=== PATIENT | female | born 1940 | race Caucasian/White ===

== ENCOUNTER 2018-09-08 15:55 | Inpatient (IN) | payer MEDICARE ==
[2018-09-08] MEDS ORDERED: hydrALAZINE IV* 20 MG/ML VIAL IV SLOW PU PRN (18:49)
[2018-09-08] MEDS ORDERED: Ondansetron INJ* 2 MG/ML VIAL IV SCH (19:30)
[2018-09-08] MEDS ORDERED: Metoprolol Tartrate IV* 1 MG/ML 5 ML VIAL IV PRN (19:39)
[2018-09-08] MEDS: Morphine VIAL* 4 MG/ML VIAL (1 ml vial) IV PRN (20:14)
[2018-09-08] MEDS: Ondansetron INJ* 2 MG/ML VIAL IV PRN (20:14)
[2018-09-08] MEDS: NS 0.9% 1000 ML* 1,000 ML IV SCH (20:15)
[2018-09-08] MEDS: LORazepam INJ* 2 MG/ML 1 ML VIAL IV PUSH PRN (20:15)
--- NOTE | 2018-09-08 20:26 | HP ---
CC: Dr. Adrian Sanchez * ADMISSION HISTORY AND PHYSICAL: DATE OF ADMISSION: 09/08/18 PRIMARY CARE PROVIDER: There is none listed on the record. ATTENDING FOR THIS ADMISSION: Dr. Enid Allen.* (DICTATED BY TAWANNA KNIGHT NP) CONSULTING PHYSICIAN: Dr. Adrian Sanchez of Surgery. HISTORY OF PRESENT ILLNESS: This is a very pleasant 77-year-old female patient who was transferred from [facility] Emergency Department. Per the notes , the patient was brought to the ED by ambulance after persistent nausea, vomiting, and diarrhea for 12 hours with severe abdominal pain. Patient had imaging in the ER at [facility] in the form of a CAT scan. CAT scan revealed dilated small bowel loops with mural thickening with air fluid levels 3.8 cm diameter with a transition point subadjacent to the surgical mesh centrally in the abdomen from a prior hernia repair. Also some colonic diverticulosis with no evidence of diverticulitis. Appendix was not visualized and some other ancillary findings. At that point, it was determined the patient had a small bowel obstruction. She received 2 L of fluid, IV morphine, IV Zofran, and IV Reglan, and was transferred to [facility] for surgical evaluation. Upon arrival, the patient appears to be alert and in no acute distress. She is currently comfortable, not complaining of abdominal pain. She is having bouts of nausea. Denies any fever or chills. No shortness of breath. No chest pain , no urinary complaints. Diarrhea is currently subsided and no further constitutional complaints. PAST MEDICAL HISTORY: Significant for atrial fibrillation, paroxysmal in the past; ovarian cancer; and hypertension. PAST SURGICAL HISTORY: Appendectomy, cholecystectomy, and hysterectomy. HOME MEDICATIONS: Include: 1. Crestor 5 mg p.o. in the evening. 2. Metoprolol succinate XL 12.5 mg p.o. b.i.d. ALLERGIES: TYLENOL, which causes vomiting; CEPHALOSPORINS, which causes vomiting; LATEX, which causes swelling; and PENICILLINS, which also causes vomiting. FAMILY HISTORY: Noncontributory. SOCIAL HISTORY: Smoking History: The patient does have history of smoking. She has quit more than 1 year ago. Drinks alcohol only socially. Lives at home with her family. She is retired. Her next of kin and healthcare proxy is her , Ulices Vu, can be reached at [phone]. PHYSICAL EXAMINATION GENERAL: Well-appearing older female, in no acute distress. VITAL SIGNS: Blood pressure 161/60, heart rate 92, respiratory rate 16, O2 saturation 95% on room air with temperature of 97.6. HEENT: Patient is atraumatic, normocephalic. PERRLA with nonicteric sclerae. NECK: Supple, nontender. No JVD noted. No carotid bruits auscultated. LUNGS: Clear bilaterally to auscultation with no wheezing, rhonchi, or rales. CARDIOVASCULAR: S1, S2 present. No murmurs, gallops, or rubs. ABDOMEN: Bowel sounds are hypoactive. She has some mild distention. Generalized tenderness localizing more to the left and lower quadrant. MUSCULOSKELETAL: There is no clubbing, no cyanosis, and no edema. She has full range of motion. NEUROLOGIC: Grossly intact. No focal deficits. SKIN: Warm, dry, and intact. PSYCHIATRIC: She is cooperative and appropriate. DIAGNOSTIC STUDIES/LAB DATA: Laboratories obtained at [facility]: WBC is mildly elevated at 12.2, RBC is 4.96, hemoglobin 15.7, hematocrit 46.2, platelets 372,000. Sodium 137, potassium 4.1, chloride 99, CO2 of 23, BUN 25, creatinine 1.1, GFR is 48. AST 37, ALT 45, alk phos 82. INR is 0.99. Urinalysis is bertha cloudy urine with no acute infective process noted. CT of the abdomen as noted above. IMPRESSION: This is a 77-year-old female patient with a history of abdominal surgery, hernia repair, and hysterectomy in the past, who presents with persistent nausea and vomiting for 12 hours, found to have small bowel obstruction. DIAGNOSES: 1. Small bowel obstruction: The patient will be kept n.p.o. We will continue her on IV fluids, morphine for pain control, and IV Zofran for her nausea. Per ER records, the patient refused to have an NG tube placed when she was at [facility]. If her vomiting persists, we will defer to Surgery's recommendations whether an NG tube should be placed. Dr. Sanchez is currently at the bedside evaluating the patient and we will defer to any further recommendations he makes regarding her care. 2. For her hypertension, she is on metoprolol XL, which is controlling her blood pressure but it was also for her remote history of paroxysmal atrial fibrillation. She is currently in regular sinus rhythm. Patient did have elevated pressure upon arrival. May in fact be due to her pain; however, we will also order lopressor 5mg IVP and hydralazine 5 mg IVP push q.6 hours as needed with parameters. 3. History of hyperlipidemia: She is currently on Crestor which will be held while NPO. 4. Diet: She should be n.p.o. 5. Fluids: She will have IV normal saline at 125 mL/hour. 6. Code status: The patient is a full code. 7. DVT prophylaxis: She will be placed on heparin 5000 units subcu q.8 hours. She can ambulate with assistance as tolerated. 8. History of anxiety. Patient will be placed on IV Ativan, very small dose of 0.5 mg q.6 hours as needed for anxiety and/or agitation. The rest of the patient's course will be determined by further diagnostics, laboratories, and any other input from other providers as warranted during this admission. This plan of care has been discussed with Dr. Davis, the attending on this case , and she is in agreement with the plan. We look forward to any further recommendations from Dr. Sanchez and the surgical team regarding her plan of care. TIME SPENT: Approximately 60 minutes interviewing the patient, reviewing the chart from her previous facility, and interfacing with primary nursing staff. TAWANNA KNIGHT NP [id number]/[facility] #: [id number] SISSY
[2018-09-08] MEDS ORDERED: Metoprolol Succinate XL TAB* 25 MG PO SCH (21:00)
[2018-09-08] MEDS: Heparin VIAL(*) 5000 UNITS/ML VIAL (FIVE THOUSAND) SUBCUT SCH (21:41)
--- NOTE | 2018-09-08 22:12 | CONS ---
CC: Darshana Pagan MD * SURGICAL CONSULTATION REPORT: DATE OF CONSULT: 09/08/18 REASON FOR CONSULT: Small bowel obstruction. HISTORY OF PRESENT ILLNESS: Is as follows: Mrs. Vu is a 77-year-old female who reports a 2-week history of irregular bowels as well as symptoms of upper respiratory infection, who began having left-sided then generalized abdominal pain about 5 p.m. on 09/07/18. Earlier in the day, she had eaten strawberries and raw shelled peanuts. Shortly after her pain worsened, she tried drinking some daria nu and promptly had emesis. She then proceeded to have multiple episodes of emesis including bilious emesis, totalling at least 10 episodes. She did not sleep well in the evening, and on the morning of 09/08, she felt she needed to go to the hospital emergency room and she presented to [facility]. She reports chills, but no fever. She had a bowel movement in the evening, but states that was diarrhea. She has not passed flatus for 1 to 2 days. She denies hematemesis or hematochezia. She reports intentional weight loss of about 5 pounds every 2 weeks. At [facility], she underwent evaluation with CT imaging. The patient was found to have dilated small bowel loops with air fluid levels, colonic diverticulosis, and the impression was small bowel obstruction on the basis of adhesions. She had been transferred to the [facility] for higher level of care and availability of surgical consultation. PAST MEDICAL HISTORY: Significant for high blood pressure, high cholesterol, ovarian cancer, and anxiety. PAST SURGICAL HISTORY: Significant for appendectomy as a teenager, open cholecystectomy in the , and GILLIAN/BSO in [facility] in 2006. She denies any history of hernia repair. HOME MEDICATIONS: 1. Alprazolam 0.25 mg p.r.n. anxiety. 2. Metoprolol 25 mg b.i.d. 3. Rosuvastatin 5 mg q.h.s. ALLERGIES: LATEX causes difficulty breathing, also ACETAMINOPHEN, CEPHALOSPORIN , PENICILLIN. FAMILY HISTORY: Mother had brain cancer, also high blood pressure, borderline diabetes. Father had atherosclerotic heart disease and brother has obesity and heart disease. SOCIAL HISTORY: She is . She lives with her , who she takes care of as he has Parkinson disease. She reports a distant history of tobacco use and she quit cigarette smoking 30 years ago. She reports rare alcohol use and denies drug use. REVIEW OF SYSTEMS: A 14-point review of systems was completed, significant for the above mentioned positives and negatives, otherwise were negative. PHYSICAL EXAM: She is a 77-year-old obese female, in no acute distress, 5 feet 2 inches, 184 pounds, BMI of 33.8. Temperature 97.6, blood pressure 161/60, pulse of 92, respirations 16, O2 sat 95% on room air. Head is normocephalic and atraumatic. Sclerae anicteric. Mucous membranes are moist. She has no otorrhea or rhinorrhea. Dentition is intact. Neck is symmetrical with no palpable lymphadenopathy and trachea is midline. Her lungs are clear to auscultation bilaterally without wheezes, rales, or rhonchi. Her heart is regular, S1, S2. Appreciate no murmurs. Her abdomen is obese. Bowel sounds are diminished. She has well-healed scars, an oblique paramedian scar towards the right side as well as lower midline scar. Abdomen is soft. There is tenderness in the mid abdomen to lower abdomen with mild tenderness to percussion. No guarding. Extremities are warm. No cyanosis, clubbing, or edema. Her skin is warm. She has numerous keratoses. DIAGNOSTIC STUDIES/LAB DATA: Laboratory data from [facility] was reviewed. Her CBC is notable for WBCs of 12.2, hemoglobin of 15.7, no shift, platelet count is 372. Comprehensive metabolic panel notable for normal electrolytes, elevated BUN at 25, creatinine mildly elevated at 1.1, glucose elevated at 146. Albumin, lipase, and amylase were normal. Coagulation studies were normal. Urinalysis showed specific gravity 1.18, 1+ protein, 1+ ketones, 1+ bilirubin, blood and nitrite negative. CT imaging was as reported. Images not available for review at this time. IMPRESSION: A 77-year-old female with a history of multiple abdominal surgeries , now presenting with small bowel obstruction, likely secondary to adhesions. PLAN/RECOMMENDATIONS: I discussed findings with the patient, her daughter, and her granddaughter, who accompanied her. I have recommended n.p.o. status, placement of NG tube for decompression. She will need intravenous hydration. [facility] will continue to follow. She will need serial abdominal x- rays and exams. Should she fail to improve or if she should worsen, then surgery may be required; however, there is no urgent or emergent need for any surgery at this time. [id number]/[facility] #: [id number] MTDD
[2018-09-09] MEDS: NS 0.9% 1000 ML* 1,000 ML IV SCH ×3 (04:21→21:32)
[2018-09-09] MEDS: Heparin VIAL(*) 5000 UNITS/ML VIAL (FIVE THOUSAND) SUBCUT SCH ×3 (05:18→21:33)
[2018-09-09 05:52] LABS: ABS Basophils 0 10^3/ul (0-0.2); ABS Eosinophils 0 10^3/ul (0-0.6); ABS Lymphocytes 1.3 10^3/ul (1.0-4.8); ABS Monocytes 0.6 10^3/ul (0-0.8); ABS Nucleated RBC 0 10^3/ul; Eosinophil % 0.4 %; Hematocrit 35 % (35-47); Hemoglobin 11.9 g/dl (12.0-16.0); Lymphocyte % 18.8 %; Mean Corpuscular HGB Conc 34 g/dl (31-36); Mean Corpuscular Hemoglobin 33 pg (27-31); Mean Corpuscular Volume 95 fL (80-97); Mean Platelet Volume 8.3 fL (7.4-10.4); Nucleated Red Blood Cells % 0; Platelet Count 242 10^3/ul (150-450); Red Blood Count 3.67 10^6/ul (4.00-5.40); Red Cell Distribution Width 13 % (10.5-15); White Blood Count 6.9 10^3/ul (3.5-10.8)
[2018-09-09 06:10] LABS: Albumin 3.4 g/dL (3.2-5.2); Albumin/Globulin Ratio 1.4 (1-3); BUN/Creatinine Ratio 37.5 (8-20); Calcium 7.3 mg/dL (8.6-10.3); Globulin 2.5 g/dL (2-4); Potassium 3.6 mmol/L (3.5-5.0); Total Bilirubin 0.6 mg/dL (0.2-1.0); Total Protein 5.9 g/dL (6.4-8.9)
[2018-09-09] MEDS: Morphine VIAL* 4 MG/ML VIAL (1 ml vial) IV PRN ×2 (09:55→19:52)
--- NOTE | 2018-09-09 11:23 | OP ---
Operative Report - Blank - Operative Report Date of Operation: 09/09/18 Note: Surgery Progress: S: Feels better. Much less pain. Passed some flatus. No N/V. Does not like NG. O: Vital Signs - 8 hr 09/09/18 09/09/18 09/09/18 03:24 07:44 08:00 Temperature 98.1 F 97.5 F Pulse Rate 84 81 Respiratory 20 16 16 Rate Blood Pressure 154/62 143/58 (mmHg) O2 Sat by Pulse 98 97 Oximetry 09/09/18 09:55 Temperature Pulse Rate Respiratory 16 Rate Blood Pressure (mmHg) O2 Sat by Pulse Oximetry Intake and Output Last 24 Hours 09/07/18 09/08/18 09/09/18 09/10/18 06:59 06:59 06:59 06:59 Intake Total 990 Balance 990 Weight 184 lb 9.6 oz Intake: IV Fluids 990 NS 990 Oral 0 Other: # Bowel Movements 0 # Voids 0 (No NG output recorded in I/O; there is currently ~ 350 ml of light drainage in trap) Gen: WN, obese female in NAD, lying in bed Heart: reg Lungs: clear; decreased at bases Abd: scars from previous surgery; nondistended per pt; +BS, though somewhat hypoactive; soft; mild tenderness R side to deep palp (per pt, much better); nontender to palp on L AXR: contrast in colon; no sig distended SB loops (reading pending by radiologist) A: SBO, resolving P: I believe it would be safe to d/c NG and allow her sips of clear liquids; maintain IVF through today, then liberalize po intake 09/10 and d/c home if continued improved clinical course. Will d/w Dr. Sanchez.
[2018-09-09] MEDS: Ondansetron INJ* 2 MG/ML VIAL IV PRN ×2 (16:02→19:53)
--- NOTE | 2018-09-09 16:07 | PN ---
Subjective Date of Service: 09/09/18 Interval History: Patient seen and examined. Family at bedside. NG tube removed appox 20 minutes ago. Patient feeling dizzy and tired. Sats have been low-normal. Denies chest pain, no SOB, no vomiting. Objective Active Medications: Heparin Sodium (Porcine) (Heparin Vial(*)) 5,000 units SUBCUT Q8HR [facility] Last Admin: 09/09/18 13:07 Dose: 5,000 units Sodium Chloride (Ns 0.9% 1000 Ml*) 1,000 mls @ 125 mls/hr IV PER RATE [facility] Last Admin: 09/09/18 13:06 Dose: 125 mls/hr Lorazepam (Ativan Inj*) 0.5 mg IV PUSH Q6H PRN PRN Reason: ANXIETY Last Admin: 09/08/18 20:15 Dose: 0.5 mg Metoprolol Tartrate (Lopressor Iv*) 5 mg IV Q6H PRN PRN Reason: tachycardia or hypertension Morphine Sulfate (Morphine Vial*) 4 mg IV Q4H PRN PRN Reason: PAIN - MILD Last Admin: 09/09/18 09:55 Dose: 4 mg Ondansetron HCl (Zofran Inj*) 4 mg IV Q4H PRN PRN Reason: NAUSEA/VOMITING Last Admin: 09/08/18 20:14 Dose: 4 mg Vital Signs - 8 hr 09/09/18 09/09/18 09/09/18 09:55 11:19 11:44 Temperature 98.2 F Pulse Rate 79 Respiratory 16 16 14 Rate Blood Pressure 142/60 (mmHg) O2 Sat by Pulse 97 Oximetry Oxygen Devices in Use Now: Nasal Cannula Appearance: alert, fatigued-appearing Eyes: No Scleral Icterus, PERRLA Ears/Nose/Mouth/Throat: NL Teeth, Lips, Gums, Mucous Membranes Moist Neck: NL Appearance and Movements; NL JVP, Trachea Midline Respiratory: Symmetrical Chest Expansion and Respiratory Effort, Clear to Auscultation Cardiovascular: NL Sounds; No Murmurs; No JVD, RRR, No Edema Abdominal: - - hypoactive BS, passing flatus, no distension, no pain Extremities: No Edema, No Clubbing, Cyanosis Skin: No Rash or Ulcers, No Nodules or Sclerosis Neurological: Alert and Oriented x 3 Nutrition: - - sips of water only Result Diagrams: 09/09/18 05:25 09/09/18 05:25 Assess/Plan/Problems-Billing Assessment: This is a 77 year old female with history of HTN, afib and multiple abdominal surgeries in the past that was transferred from [facility] for protracted nausea and vomiting, found to have partial SBO. - Patient Problems (1) Partial small bowel obstruction Code(s): K56.600 - PARTIAL INTESTINAL OBSTRUCTION, UNSPECIFIED TO CAUSE SNOMED Code(s): 613775568 Comment: - NG tube inserted last night with good effect - NG tube discontinued today as per surgery - Diet per surgery, advance to clears in AM - Continue IVF - Antiemetics PRN, pain control PRN (2) Hypertension Code(s): I10 - ESSENTIAL (PRIMARY) HYPERTENSION SNOMED Code(s): 93226748 Comment: - Lopressor 5mg IVP PRN HTN, BP stable (3) Paroxysmal A-fib Code(s): I48.0 - PAROXYSMAL ATRIAL FIBRILLATION SNOMED Code(s): 607209163 Comment: - On metoprolol - Currently on PRN lopressor IV given obstruction - Restart home dose tomorrow if tolerating PO - HR is currently regular (4) DVT prophylaxis Code(s): HWJ7442 - SNOMED Code(s): 233430417 Comment: - HSQ (5) Full code status Code(s): Z78.9 - OTHER SPECIFIED HEALTH STATUS SNOMED Code(s): 324666067 Status and Disposition: Inpatient. Anticipate DC to home when medically stable 1-2 days.
[2018-09-09] MEDS ORDERED: Atorvastatin* 10 MG TAB PO SCH (18:00)
[2018-09-09] MEDS ORDERED: hydrALAZINE IV* 20 MG/ML VIAL IV SLOW PU PRN (18:43)
[2018-09-09] MEDS: LORazepam INJ* 2 MG/ML 1 ML VIAL IV PUSH PRN (19:52)
[2018-09-10] MEDS: NS 0.9% 1000 ML* 1,000 ML IV SCH ×3 (05:36→22:52)
[2018-09-10] MEDS: Heparin VIAL(*) 5000 UNITS/ML VIAL (FIVE THOUSAND) SUBCUT SCH ×3 (05:37→21:08)
[2018-09-10] MEDS: LORazepam INJ* 2 MG/ML 1 ML VIAL IV PUSH PRN (06:22)
[2018-09-10] MEDS: Ondansetron INJ* 2 MG/ML VIAL IV PRN ×2 (06:22→09:57)
--- NOTE | 2018-09-10 11:47 | PN ---
Progress Note - Progress Note Date of Service: 09/10/18 Note: Surgery Progress: S: spoke earlier w/ NAMRATA Anderson who stated that patient was having more abd pain and nausea. At present she denies much pain. She feels hungry. Had 2 small BMs this a.m. and has been passing flatus. She is somewhat anxious re: her , who, with his Parkinson's, has been getting more confused, fell on his way bringing her in yesterday, and relies on her at home. Her daughter confirms. O: Vital Signs - 8 hr 09/10/18 09/10/18 09/10/18 06:14 06:22 08:05 Temperature 98.4 F Pulse Rate 83 78 Respiratory 14 16 16 Rate Blood Pressure 169/63 134/66 (mmHg) O2 Sat by Pulse 97 97 Oximetry Intake and Output Last 24 Hours 09/08/18 09/09/18 09/10/18 09/11/18 06:59 06:59 06:59 06:59 Intake Total 990 3980 Output Total 520 Balance 990 3460 Weight 184 lb 9.6 oz Intake: IV Fluids 990 3980 NS 990 3980 Oral 0 0 Output: NG Tube Drainage Amount 520 Other: # Bowel Movements 0 1 # Voids 0 2 Gen: appears comfortable, conversant, and in NAD Heart: reg Lungs: clear Abd: no sig distension or tympany; BS+; soft; mild, mostly R side tenderness A: SBO, resolving P: cancel AXR; give clear liqs ad nichole and d/c home later today if melony. I texted a msg to the hospitalist.
[2018-09-11] MEDS: Ondansetron INJ* 2 MG/ML VIAL IV PRN (03:30)
[2018-09-11] MEDS: Heparin VIAL(*) 5000 UNITS/ML VIAL (FIVE THOUSAND) SUBCUT SCH (05:42)
[2018-09-11] MEDS: LORazepam INJ* 2 MG/ML 1 ML VIAL IV PUSH PRN (06:13)
[2018-09-11] MEDS: NS 0.9% 1000 ML* 1,000 ML IV SCH (07:16)
[2018-09-11 09:34] VITALS: BP 160/65
--- NOTE | 2018-09-11 13:41 | DS ---
CC: Dr. Sanchez; Dr. Darshana Pagan DISCHARGE SUMMARY: DATE OF ADMISSION: 09/08/18 DATE OF DISCHARGE: 09/11/18 PRINCIPAL DISCHARGE DIAGNOSES: Small-bowel obstruction. SECONDARY DISCHARGE DIAGNOSES: 1. Anxiety. 2. Hypertension. 3. Paroxysmal atrial fibrillation. 4. Hyperlipidemia. 5. History of ovarian cancer. MEDICATIONS AT THE TIME OF DISCHARGE: 1. Toprol-XL 12.5 mg b.i.d. 2. Crestor 5 mg q.h.s. 3. Xanax 0.25 mg q.6 p.r.n. anxiety. 4. Zofran 4 mg q.6 p.r.n. nausea. PHYSICAL EXAM AT THE TIME OF DISCHARGE: Temperature 98.0, heart rate 87, respiratory rate 12, pulse ox 92% on room air, blood pressure 160/65. General: Alert, well-appearing elderly female, in no dist ress. She is sitting at the edge of her bed, eating her breakfast. She is well appearing. HEENT: Pupils are 3 mm bilaterally and reactive to light. Oral mucosa is moist with no pharyngeal exudates or erythema. Neck: No JVP. No cervical adenopathy. Chest: She is in a regular rate and rhythm wit h no murmurs. She has a port on her right chest wall. Her lungs are clear bilaterally with no crackl es or rhonchi. Abdomen is soft with old healed incisions in the midline and the right lower quadrant . She has no guarding or rebound. Her bowel sounds are active in all quadrants. She has no CVA ten derness. Extremities: No edema, rashes, or ulcers. Neurologic: She is oriented x3, calm, pleasant, and her gait is normal. HOSPITAL COURSE BY PROBLEM: 1. Small-bowel obstruction: Ms. Vu presented to the ED with emesis and abdominal pain and a CT scan at [facility] showed dilated small bowel loops with air fluid levels. She was transferred to [facility] for availability of surgery and she was evaluated by Dr. Sanchez upon arrival. He agreed with the diagnosis of small-bowel obstruction, recommended an NG tube for decompression and a n NG tube was placed with successful decompression. She had serial x-rays and exams and she is slowl y improved and the NG tube was removed on 09/10/18. Her diet was slowly advanced and at the time of discharge she is tolerating a full liquid diet without any pain. She gets occasional nausea, but it is well controlled with Zofran. The etiology of her small-bowel obstruction is likely to have been ad hesions from prior abdominal surgeries. She is to continue advancing her diet at her comfort. She is having regular bowel movements. 2. History of paroxysmal AFib. She underwent an ablation approximately 13 years ago. She takes met oprolol, but she reports that AFib has not returned. She has not been on anticoagulation since the ab lation, which was reportedly successful. She is in a regular rate and rhythm here. 3. Anxiety. She was continued on her home dose of Xanax. 4. Hyperlipidemia. She was continued on rosuvastatin. 5. Disposition. At the time of discharge, Ms. Vu has ambulated around the unit. She is tolera ting the diet and she is to follow up with her primary care physician within 1 week. 6. She is instructed to return to the emergency department should she develop abdominal distention, pain, nausea, or vomiting. She is encouraged to keep up with her p.o. intake and return to the emerg ency department if she is unable to do so. TIME SPENT: Forty minutes was spent on this discharge. [id number]/[facility] #: [id number]
== END 2018-09-11 10:25 | disposition home or self-care (01) | DRG 390 ==
LOC: MED 18:02
PROVIDERS: ADMIT Hospitalist; ATTEND Internal Medicine
PROC: 0D9670Z Drainage of Stomach with Drainage Device, Via Natural or Artificial Opening (ICD-10-PCS; principal; 2018-09-08)
DX: K56.51 Intestinal adhesions [bands], with partial obstruction (principal); I48.0 Paroxysmal atrial fibrillation; F41.9 Anxiety disorder, unspecified; I10 Essential (primary) hypertension; E78.5 Hyperlipidemia, unspecified; E66.9 Obesity, unspecified; Z83.3 Family history of diabetes mellitus; Z85.43 Personal history of malignant neoplasm of ovary; Z90.89 Acquired absence of other organs; Z90.710 Acquired absence of both cervix and uterus; Z90.49 Acquired absence of other specified parts of digestive tract; Z88.8 Allergy status to other drugs, medicaments and biological substances; Z88.1 Allergy status to other antibiotic agents; Z88.0 Allergy status to penicillin; Z91.040 Latex allergy status; Z87.891 Personal history of nicotine dependence; Z82.49 Family history of ischemic heart disease and other diseases of the circulatory system; Z80.8 Family history of malignant neoplasm of other organs or systems; Z72.89 Other problems related to lifestyle; Z68.33 Body mass index [BMI] 33.0-33.9, adult
CPT/HCPCS: 36415; 71045; 74019; 80053; 85025; J0360; J1642; J1644; J2060; J2270; J2405; J3490